=== PATIENT | female | born 1940 | race Caucasian/White ===

== ENCOUNTER → 2019-12-08 | Outpatient (CLI) | payer OTHER ==
[~2019-12-08] VITALS: Ht 154.9 cm; Wt 84.8 kg
[~2019-12-08] MED LIST: AMLODIPINE-OLM1 EACH PO; AZELASTINE137 MCG/0. NASAL; CALCIUM 500 +1 EAC1 PO; HYDROCHLOROTHIA25 M2 PO; MULTI VITAMIN1 EACH PO; OMEPRAZOLE40 MG PO; VITAMIN D3250 MC1 PO; ZOCOR 10 MG TAB10 M1 PO
--- NOTE | 2019-12-09 16:08 | PATH ---
[facility] [place] [address] PATHOLOGY RPT PROCEDURE Name: JUANITA RODRIGUEZ MARVA Room #: REG [facility]..#: [id number] Admission: 12/08/19 Date of : 44 Discharge: Report #: [id number] Path Case #: [id number] [facility] Accession Number: [id number] . 01 Material submitted: . PART A: appendix - QUESTIONABLE POLYP AT MOUTH OF APPENDICEAL ORIFICE PART B: cecum - POLYP AT CECUM X3 PART C: hepatic flexure - POLYP AT HEPATIC FLEXURE PART D: colon - POLYP AT PROXIMAL TRANSVERSE COLON. Modifiers: transverse, proximal . 01 Clinical history: . Screening . 02 Diagnosis: A. Questionable polyp, at mouth of appendiceal orifice, endoscopic biopsy: - Tubular adenoma. - Negative for high grade dysplasia. - Multiple additional fragments present within the background showing reactive changes without any dysplasia. . B. Polyp x3, cecum, endoscopic biopsy: - Tubular adenoma identified in multiple fragments. - Negative for high grade dysplasia. . C. Polyp, at hepatic flexure, endoscopic biopsy: - Hyperplastic polyp. - Negative for dysplasia. . D. Polyp, at proximal transverse colon, endoscopic biopsy: - Hyperplastic polyp. - Negative for dysplasia. . (IUV:mml; 12/09/2019) QLM 12/09/2019 1227 Local . 02 Electronically signed: . Bebe Ashraf MD, Pathologist NPI- [id number] . 01 Gross description: . A. The specimen is received in formalin, labeled "Juanita Rodriguez, questionable polyp at mouth of appendiceal orifice". Received are five segments of pale chauhan soft tissue ranging in size from 0.2 to 0.4 cm in maximum dimensions. The specimen is submitted entirely in cassette A1. . [address] [address] PATHOLOGY RPT PROCEDURE Name: JUANITA RODRIGUEZ MARVA Room #: REG [facility]#: [id number] Admission: 12/08/19 Date of : 44 Discharge: Report #: [id number] Path Case #: [id number] B. The specimen is received in formalin, labeled "Juanita Rodriguez, polyp at cecum". Received are seven segments of pale chauhan soft tissue ranging in size from 0.3 to 0.6 cm in maximum dimensions. The specimen is submitted entirely in cassette B1. . C. The specimen is received in formalin, labeled "Juanita Jennifer, polyp at hepatic flexure". Received is a segment of pale chauhan soft tissue measuring 0.5 cm in maximum dimensions. The specimen is submitted entirely in cassette C1. . D. The specimen is received in formalin, labeled "Juanita Rodriguez, polyp at proximal transverse". Received are two segments of pale chauhan soft tissue measuring 0.4 cm each in maximum dimensions. The specimen is submitted entirely in cassette D1. (CAA; 12/08/2019) QAC/QAC 12/09/2019 1223 Local . 02 Pathologist provided ICD-10: D12.1, D12.0, K63.5, Z12.11 . 02 CPT . 898804, 180802, 779967, 821080 Specimen Comment: A courtesy copy of this report has been sent to [phone] Specimen Comment: Report sent to Performed at: [address], [place] [id number] MD Sky Fish MD Phone: [phone] Performed at: [address] [id number] MD Bebe Ashraf MD Phone: [phone]
--- NOTE | 2019-12-10 12:27 | P ---
[facility] [place] [address] [place] [address] PROCEDURE REPORT Name: JUANITA STORY Room #: REG [facility]#: [id number] Admission: 12/08/19 Attend Phys: Esteban Berg MD Discharge: Date of : 44 Report #: [id number] THIS REPORT FOR: cc: Bharath Mccrary Ronald D. DO Thesing, John A. MD ~ CC: Esteban Mccrary DO DATE OF SERVICE: 12/08/2019 OUTPATIENT COLONOSCOPY REPORT BRIEF HISTORY: The patient is a 79-year-old woman who has a history of 4 adenomas in the past and family history of colon cancer, brother age 62. PREOPERATIVE DIAGNOSIS: High risk screening colonoscopy. POSTOPERATIVE DIAGNOSES: 1. Multiple colon polyps. 2. Moderate sigmoid diverticulosis coli. MEDICATIONS: Deep sedation with propofol for anesthesia. SPECIMENS: 1. Questionable polyp mouth of the appendiceal orifice. 2. Polyps x 3 cecum. 3. Polyp, hepatic flexure. 4. Polyp, proximal transverse colon. ESTIMATED BLOOD LOSS: 3 mL. PROCEDURE: Colonoscopy to cecum and terminal ileum with snare polypectomy and biopsy. FINDINGS: Prior to propofol sedation, procedure of colonoscopy discussed with the patient as well potential risks and its complications. She indicates she understands and desired that we proceed. DESCRIPTION OF PROCEDURE: With the patient in left lateral decubitus position, digital examination was completed, which revealed no abnormalities. Subsequently, the Olympus video colonoscope was introduced into the rectum, advanced under direct vision to the cecum. Done with minimal difficulty. Cecum was identified by the ileocecal valve and the appendiceal orifice. I was able to visualize the distal segment of terminal ileum, which was inspected and noted [facility] [address] [place] [address] PROCEDURE REPORT Name: JUANITA STORY MARVA Room #: REG [facility]..#: [id number] Admission: 12/08/19 Attend Phys: Esteban Berg MD Discharge: Date of : 44 Report #: [id number] to be unremarkable. At that point, the scope was slowly withdrawn and careful circumferential views were obtained. Upon slow withdrawal of the scope, the prep was good. The mucosa was within normal limits, normal vascular pattern, normal light reflex. As we withdrew the scope, the appendiceal orifice was carefully inspected and the mouth of the appendiceal orifice appeared to be a little irregular and had somewhat of an adenomatous appearance. Other than mucosal irregularity, no other abnormalities were seen at the appendiceal orifice and this area was biopsied. In addition, in the cecum, there were 3 polyps. One was a diminutive polyp removed with biopsy forceps. The other 2 were flat polyps in the range of 5-6 mm, removed by snare polypectomy and biopsy forceps. As we withdrew the scope, the mucosa was within normal limits, normal vascular pattern, normal light reflex. At the hepatic flexure, another diminutive polyp was seen and removed with biopsy forceps through the proximal transverse colon, another was seen and removed with biopsy forceps. The scope was further withdrawn and no additional neoplastic lesions were seen. In the sigmoid colon, there was moderately severe sigmoid diverticular disease without endoscopic evidence of diverticulitis. The scope was withdrawn in the rectum, no abnormalities were seen. Upon retroflexion, no abnormalities were seen. Scope was withdrawn. The patient tolerated the procedure well. CONDITION OF THE PATIENT UPON DISCHARGE: Following procedure, the patient was drowsy, arousable, conversant and will be discharged home when fully ambulatory. INSTRUCTIONS TO THE PATIENT AND FAMILY AT THE TIME OF DISCHARGE: We will follow up on the pathology of the polyps. If 3 or more are adenomatous, she should return in 3 years. Otherwise, she is to return in 5 years for followup colonoscopy. Last colonoscopy was 5 years ago. Withdrawal time from cecum was 12 minutes 11 seconds. <ELECTRONICALLY SIGNED> By: Esteban Berg MD 12/10/19 1227 1029 [id number] Esteban Berg MD /nt
== END | disposition home or self-care (01) ==
LOC: GI 08:39
DX: Z12.11 Encounter for screening for malignant neoplasm of colon (principal); Z86.010 Personal history of colon polyps; Z80.0 Family history of malignant neoplasm of digestive organs; D12.0 Benign neoplasm of cecum; D12.1 Benign neoplasm of appendix; K57.30 Diverticulosis of large intestine without perforation or abscess without bleeding; I10 Essential (primary) hypertension; E78.5 Hyperlipidemia, unspecified; K21.9 Gastro-esophageal reflux disease without esophagitis; Z98.890 Other specified postprocedural states; Z79.899 Other long term (current) drug therapy; Z98.41 Cataract extraction status, right eye; Z88.8 Allergy status to other drugs, medicaments and biological substances; Z98.42 Cataract extraction status, left eye
CPT/HCPCS: 62110; 62900